=== PATIENT | female | born 1985 | race Hispanic/Latino ===

== ENCOUNTER 2017-11-19 09:54 | Outpatient (CLI) | payer BC | END 2017-11-19 09:55 | disposition home or self-care (01) | LOC: BICULT 09:54 | PROVIDERS: ATTEND Family Medicine | DX: Z34.92 Encounter for supervision of normal pregnancy, unspecified, second trimester (principal); Z3A.20 20 weeks gestation of pregnancy | CPT/HCPCS: 76805 ==

== ENCOUNTER 2018-03-19 16:23 | Day surgery (SDC) | payer BC ==
[2018-03-19 17:36] VITALS: BP 124/74; TEMP 98.7; BMI 36.2
--- NOTE | 2018-03-19 18:01 | PDOC.LDHP ---
Labor and Delivery H&P HPI: Patient of Dr Ondina Thompson. Patient is a 32 yo at [address] Thompson yesterday and was 3cm. here for irregular CTX. HX GDM on metformin. No VB no LOF. No HAs, no visual changes. Good FM. Review of systems: Complete ROS completed and as per HPI Current gestational age (weeks): 37 Due date: 04/09/18 Dating criteria: last menstrual period Grav: 3 Para: 2 OB History Details: CS X 1 with first and with last delivery. Desires TOLAC Current complications: gestational diabetes (Metformin) Abnormal US findings: No Current medications: pre-santa vitamins, other (metformin) Previous surgical history: low tranverse CS Allergies/Adverse Reactions: Allergies Allergy/AdvReac Type Severity Reaction Status Date / Time No Known Allergies Allergy Verified 09/08/16 21:43 Social history: none - Physical Exam Vital signs reviewed and normal: yes General: NAD Heart: RRR Lungs: CTAB Abdomen: gravid Extremeties: no edema FHT: category 1 [place] contractions every: irregular - Vaginal Exam cm dilated: 3 (BOWI) Effacement: 50% Station: -1 - Assessment GDM on metformin, latent phase of labor - Plan Plan: observation in L&D (We will observe for now and recheck in 1 hour. No cervical change since yesterday. I have ordered an accucheck for GDM HX.)
--- NOTE | 2018-03-19 18:34 | PDOC.EVN ---
Event Note - Event Note Event Note: bedside accucheck was 86.
--- NOTE | 2018-03-19 18:55 | PDOC.EVN ---
Event Note - Event Note Event Note: no cervical change at recheck: ok for discharge.
== END 2018-03-19 19:11 | disposition home or self-care (01) ==
LOC: L&D/OP 16:23
PROVIDERS: ATTEND Family Medicine
DX: O47.1 False labor at or after 37 completed weeks of gestation (principal); O24.415 Gestational diabetes mellitus in pregnancy, controlled by oral hypoglycemic drugs; Z3A.37 37 weeks gestation of pregnancy
CPT/HCPCS: 36416

== ENCOUNTER 2018-03-21 15:14 | Day surgery (SDC) | payer BC ==
[2018-03-21 15:54] VITALS: BP 119/62; TEMP 98.2; BMI 37.4
--- NOTE | 2018-03-22 02:55 | SS ---
LABOR AND DELIVERY TRIAGE NOTE REGULAR PHYSICIAN: Darrick Zee M.D. EVALUATING PHYSICIAN: Jerson Holden M.D. CHIEF COMPLAINT: Irregular contractions over the last 24 hours. HISTORY OF PRESENT ILLNESS: Ms. Larry Sauceda is a 32-year-old G3, P2-0-0-2, EDC= 04/09/18 who presents complaining of irregular uterine contractions over the last 24 hours. She was seen by Dr. Zee last week and was noted to be 3 cm in the office. She denies ruptured membranes or vaginal bleeding. PAST OBSTETRICAL HISTORY: She had 1 section for failure to progress by Dr. Hannah. This was followed by successful with Dr. Zee. Her care has been with him and has been complicated only by gestational diabetes that was apparently diagnosed late in the and is being treated with metformin. PAST MEDICAL HISTORY: None. PAST SURGICAL HISTORY: as above. ALLERGIES: No known allergies. CURRENT MEDICATIONS: vitamins and metformin. SOCIAL HISTORY: Denies tobacco or alcohol use. FAMILY HISTORY: Unremarkable. REVIEW OF SYSTEMS: Denies nausea, vomiting, fever or chills, rupture of membranes or vaginal bleeding. PHYSICAL EXAMINATION: VITAL SIGNS: Stable. She is afebrile. ABDOMEN: Soft, nontender and gravid. Pelvic exam by the nurse on admission shows her to be 3-4 cm dilated and perhaps 50% effaced. heart tones are stable. No significant regular uterine contractions are seen. I examined her an hour later and she was 3-4 cm dilated. Her cervix was quite posterior and was maybe 70% effaced. Her heart tones remained stable. ASSESSMENT: 1. 37-week intrauterine . 2. History of previous section with history of successful . 3. No evidence of active labor at this time. PLAN: The patient will be discharged to home. She has been given complete labor precautions and will return should she begin to contract again or she ruptures her membranes. She understands all the above and has an appointment with Dr. Zee this week. MANJIT
== END 2018-03-21 17:05 | disposition home or self-care (01) ==
LOC: L&D/OP 15:14
PROVIDERS: ATTEND Family Medicine
DX: O47.1 False labor at or after 37 completed weeks of gestation (principal); Z79.84 Long term (current) use of oral hypoglycemic drugs; Z79.899 Other long term (current) drug therapy; Z98.890 Other specified postprocedural states; Z3A.39 39 weeks gestation of pregnancy
CPT/HCPCS: 99283

== ENCOUNTER 2018-03-27 11:33 | Day surgery (SDC) | payer BC ==
[2018-03-27 12:11] VITALS: BMI 37.5
--- NOTE | 2018-03-27 12:19 | PDOC.LDHP ---
Labor and Delivery H&P HPI: Patient of Dr Ondina Thompson CC: Here for possible contraction Triage Patient is a 32 yo CS and x 1 in past who desires TOLAC this time again. Cleared for TOLAC by Jay. here for irregular contractions. No VB, no gush of fluid, no trauma, good FM. Possile leakage by hx Review of systems: complete ROS performed and as per HPI Current gestational age (weeks): 38 Dating criteria: last menstrual period Grav: 3 Para: 2 OB History Details: Prior x 1 Current complications: gestational diabetes (metformin oral) Abnormal US findings: No Current medications: pre- vitamins, other (metformin) Previous surgical history: low tranverse CS Allergies/Adverse Reactions: Allergies Allergy/AdvReac Type Severity Reaction Status Date / Time No Known Allergies Allergy Verified 03/27/18 12:04 - Physical Exam Vital signs reviewed and normal: yes Abnormal vital signs: tmax 99 General: NAD Heart: RRR Lungs: CTAB Abdomen: gravid Extremeties: no edema FHT: category 1 [place] contractions every: every 2-5 minutes irregular - Vaginal Exam cm dilated: 1 Effacement: 50% Station: -3 - Assessment latent labor at early term, desires TOLAC - Plan Plan: observation in L&D (We will observe for now. Exam with palpable BOW and no leakage with manuevers (cough, valsalva). not sent as no gross leakage with manuevers and bag palpable. I w3ill monitor for 2 hours to see if leaks and /or changes CX. TOLAC reviewed)
--- NOTE | 2018-03-27 14:16 | PDOC.EVN ---
Event Note - Event Note Event Note: Follow up triage: Recheck of cervix without change, BPs ok... OK for outpatient care. DX: Latent labor at term, GDM
== END 2018-03-27 14:12 | disposition home or self-care (01) ==
LOC: L&D/OP 11:33
PROVIDERS: ATTEND Family Medicine
DX: O47.1 False labor at or after 37 completed weeks of gestation (principal); O24.415 Gestational diabetes mellitus in pregnancy, controlled by oral hypoglycemic drugs; Z79.84 Long term (current) use of oral hypoglycemic drugs; Z79.899 Other long term (current) drug therapy; Z3A.38 38 weeks gestation of pregnancy
CPT/HCPCS: 99283

== ENCOUNTER 2018-04-01 16:19 | Inpatient (IN) | payer BC ==
[2018-04-01 16:58] VITALS: BMI 37.5
[2018-04-01] MEDS ORDERED: Promethazine HCl 25 MG/ML VIAL IM PRN (17:14)
[2018-04-01] MEDS ORDERED: Butorphanol Tartrate 1 MG/ML VIAL SLOW IVP PRN (17:14)
[2018-04-01] MEDS ORDERED: Ondansetron HCl/PF 4 MG/2 ML Vial IVP PRN (17:14)
[2018-04-01] MEDS ORDERED: Ibuprofen 800 MG TAB PO PRN (17:14)
[2018-04-01] MEDS ORDERED: Lidocaine 1% (PF) 30 ML VIAL SC PRN (17:14)
[2018-04-01] MEDS ORDERED: HYDROcodone/Acetaminophen 5/325 mg Tablet PO PRN ×2 (17:14)
[2018-04-01] MEDS ORDERED: Lactated Ringer's 1,000 ML IV SCH (17:15)
[2018-04-01] MEDS ORDERED: Penicillin G Potassium 5 MILL.UNITS in Sodium Chloride 0.9% 100 ML IVPB SCH (17:15)
--- NOTE | 2018-04-01 17:20 | PDOC.LDHP ---
Labor and Delivery H&P Chief complaint: contractions HPI: 32 yo LAF c/o UCs since earlier this PM. C/o SROM here now. Current gestational age (weeks): 38 Due date: 04/09/18 Dating criteria: last menstrual period Grav: 3 Para: 2 OB History Details: PNC with Juan ferreira, complicated by GDM now on diet and Metforminj 500 QD. H/o C/S for FTP. H/o successful . Current complications: gestational diabetes Abnormal US findings: No Current medications: pre-santa vitamins, other (Metformin %00 QD) Previous surgical history: low tranverse CS Allergies/Adverse Reactions: Allergies Allergy/AdvReac Type Severity Reaction Status Date / Time No Known Allergies Allergy Verified 04/01/18 16:53 Social history: none - Physical Exam Vital signs reviewed and normal: yes General: breathing through contractions Lungs: nonlabored breathing Abdomen: gravid Extremeties: trace edema FHT: category 1, variability present [place] contractions every: UCs q 3-5 mins. - Vaginal Exam cm dilated: 5 Effacement: 90% Station: -1 - OB Labs Blood type: A RH: negative Antibody Screen: negative HIV: negative RPR: negative HEPSAg: negative 1 hour GCT: positive - Assessment L&D Assessment: term patient in labor (previous C/S with h/o successful + GBS) - Plan Plan: admit to L&D, GBS antibiotic prophylaxis (Admit to L&D, wants to again, start GBS prophylaxis, consult for epidural. Dr. Prakash covering for Dr. Zee, she has been notified)
[2018-04-01 17:29] LABS: Hemoglobin 11.3 g/dL (12.0-16.0); Mean Corpuscular HGB CONC 32.9 g/dL (32.0-36.0); Mean Corpuscular Hemoglobin 26.5 pg (27.0-31.0); Mean Corpuscular Volume 80.6 fL (78.0-98.0); Mean Platelet Volume 9.4 fL (7.4-10.4); Platelet Count 195 thou/uL (130-400); RBC Distribution Width 12.8 % (11.5-14.5); Red Blood Cell (RBC) Count 4.27 mill/uL (4.20-5.40); White Blood Cell (WBC) Count 12.3 thou/uL (4.8-10.8)
[2018-04-01] MEDS ORDERED: DISCONTINUE ALL PREVIOUS NARCOTICS FS SCH (17:45)
[2018-04-01] MEDS ORDERED: Bupivacaine 0.75% 13.4 ML, fentaNYL Citrate/PF 400 MCG in Sodium Chloride 0.9% 78.6 ML EPIDURAL SCH (17:45)
[2018-04-01] MEDS: Lactated Ringer's 1,000 ML IV SCH ×2 (18:00→21:55)
[2018-04-01 18:08] LABS: HBSAg Index 0.19 S/CO (0-0.99); Hep B Surf Ag Non-Reactive S/CO (NonReactive); Syphilis Antibody Nonreactive (Nonreactive); Syphilis Antibody Index 0.04 S/CO (<1.00 Non-Reactive)
[2018-04-01] MEDS ORDERED: ePHEDrine/0.9% NaCl/PF SYRINGE 50 mg/10 ml SLOW IVP PRN (18:56)
[2018-04-01] MEDS ORDERED: Naloxone HCl 0.4 mg/ml Vial IVP PRN ×2 (18:56)
[2018-04-01] MEDS ORDERED: Lactated Ringer's 500 ML IV PRN (18:56)
[2018-04-01] MEDS ORDERED: fentaNYL Citrate/PF 400 MCG, Bupivacaine 0.5% 20 ML in Sodium Chloride 0.9% 72 ML EPIDURAL SCH (19:00)
[2018-04-01] MEDS ORDERED: Communication Order-Pharmacy FS SCH (19:00)
[2018-04-01] MEDS: Penicillin G 2.5 MILL.units 2.5 MILL.UNITS in Premix Bag 1 BAG IVPB SCH (21:55)
[2018-04-02] MEDS: NS / Oxytocin 40 units/1000ml 1,000 ML IV PRN ×2 (01:36→02:20)
[2018-04-02] MEDS ORDERED: Milk Of Magnesia 30 ML UDCUP PO PRN (04:18)
[2018-04-02] MEDS ORDERED: Lanolin Ointment 7 GM TUBE TOP PRN (04:18)
[2018-04-02] MEDS ORDERED: Benzocaine/Menthol 20-0.5% 60 ML CAN TOP PRN (04:18)
[2018-04-02] MEDS ORDERED: Preparation H Ointment 28 GM TUBE PR PRN (04:18)
[2018-04-02] MEDS ORDERED: NS / Oxytocin 40 units/1000ml 1,000 ML IV SCH (04:18)
[2018-04-02] MEDS ORDERED: Bisacodyl 10 MG SUPP PR PRN (04:18)
[2018-04-02] MEDS ORDERED: Adacel (T-DAP) 0.5 ML VIAL IM ONE (04:45)
[2018-04-02] MEDS: Ibuprofen 800 MG TAB PO SCH ×3 (05:23→21:26)
[2018-04-02] MEDS ORDERED: Bupivacaine/Epinephrine 0.25% 30 ML VIAL ONE (07:50)
[2018-04-02] MEDS ORDERED: ePHEDrine/0.9% NaCl/PF SYRINGE 50 mg/10 ml ONE (07:50)
[2018-04-02] MEDS: Ferrous Sulfate 325 MG TAB PO SCH ×2 (09:11→17:41)
[2018-04-02] MEDS: Docusate Calcium (SURFAK) 240 MG CAP PO SCH ×2 (09:12→21:25)
[2018-04-02] MEDS: HYDROcodone/Acetaminophen 5/325 mg Tablet PO PRN ×2 (18:00→23:37)
[2018-04-02] MEDS: Penicillin G 2.5 MILL.units 2.5 MILL.UNITS in Premix Bag 1 BAG IVPB SCH (22:02)
[2018-04-03] MEDS: Ibuprofen 800 MG TAB PO SCH (05:09)
[2018-04-03 07:42] VITALS: BP 111/70; TEMP 98
--- NOTE | 2018-04-03 08:58 | PDOC.PP ---
Post Progress Note Post Day #: 1 Subjective: Doing well. No c/o. Wants to go home. PO intake tolerated: yes Flatus: yes Ambulation: yes Vital Signs (12 hours) Temp Pulse Resp BP 04/03/18 08:00 98.0 F 68 20 04/03/18 07:41 98.0 F 68 20 111/70 04/03/18 00:00 98.5 F 73 16 134/66 Weight Weight 199 lb - Physical Examination General: NAD Cardiovascular: no m/r/g, RRR Respiratory: clear to auscultation bilaterally, non-labored breathing Abdominal: + bowel sounds, lochia, no distention, appropriately TTP Psychiatric: A&Ox3, normal affect Result Diagrams: 04/01/18 17:20 Additional Labs: Post Labs Blood Type A NEGATIVE 04/01/18 17:20 Hep Bs Antigen Non-Reactive S/CO (NonReactive) 04/01/18 17:20 (1) Vaginal delivery Code(s): O80 - ENCOUNTER FOR FULL-TERM UNCOMPLICATED DELIVERY Status: Acute (2) Vaginal delivery following previous section, delivered Code(s): O34.219 - MATERNAL CARE FOR UNSP TYPE SCAR FROM PREVIOUS DEL Status: Acute - Assessment/Plan Routine PP care D/C home F/U in 6 weeks.
[2018-04-03] MEDS: Ferrous Sulfate 325 MG TAB PO SCH (09:26)
[2018-04-03] MEDS: Docusate Calcium (SURFAK) 240 MG CAP PO SCH (09:26)
== END 2018-04-03 11:50 | disposition home or self-care (01) | DRG 775 ==
LOC: L&D/OP 16:19 → L&D 17:11 → 3SW 04-02 04:14
PROVIDERS: ADMIT Family Medicine; ATTEND Family Medicine
PROC: 10E0XZZ Delivery of Products of Conception, External Approach (ICD-10-PCS; principal; 2018-04-02)
PROC: 3E0234Z Introduction of Serum, Toxoid and Vaccine into Muscle, Percutaneous Approach (ICD-10-PCS; 2018-04-02)
PROC: 3E0334Z Introduction of Serum, Toxoid and Vaccine into Peripheral Vein, Percutaneous Approach (ICD-10-PCS; 2018-04-02)
DX: O76 Abnormality in fetal heart rate and rhythm complicating labor and delivery (principal); O34.211 Maternal care for low transverse scar from previous cesarean delivery; O99.824 Streptococcus B carrier state complicating childbirth; Z37.0 Single live birth; O24.425 Gestational diabetes mellitus in childbirth, controlled by oral hypoglycemic drugs; O26.893 Other specified pregnancy related conditions, third trimester; Z3A.39 39 weeks gestation of pregnancy; Z67.10 Type A blood, Rh positive; Z23 Encounter for immunization
CPT/HCPCS: 36415; 36416; 51702; 85027; 85461; 86780; 86850; 86870; 86900; 86901; 87340; 90384; 96372; J0595; J2001; J2540; J3010; J7050

== ENCOUNTER 2021-01-07 11:48 | Outpatient (CLI) | payer BC | END 2021-01-07 11:49 | disposition home or self-care (01) | LOC: DTY/OP 11:48 | PROVIDERS: ATTEND Specialist | DX: Z01.818 Encounter for other preprocedural examination (principal); E66.01 Morbid (severe) obesity due to excess calories | CPT/HCPCS: 97802 ==

== ENCOUNTER 2021-07-27 10:00 | Inpatient (IN) | payer BC ==
[2021-08-21 13:01] VITALS: BMI 35.6
[2021-08-27] MEDS ORDERED: Scopolamine 1.5 mg/72 hour Patch ONE (06:56)
[2021-08-27] MEDS ORDERED: cefOXitin Sodium/Dextrose 2 GM/50 ML BAG ONE (06:56)
[2021-08-27] MEDS ORDERED: Heparin 5,000 UNITS/ML VIAL ONE (06:56)
[2021-08-27] MEDS ORDERED: Acetaminophen 500 MG TAB ONE (06:56)
[2021-08-27] MEDS ORDERED: Ketorolac Tromethamine 30 MG/ML VIAL ONE (06:56)
[2021-08-27] MEDS ORDERED: Fentanyl 100 MCG/2 ML VIAL ONE ×2 (07:05→09:22)
[2021-08-27] MEDS ORDERED: Midazolam HCl 2 mg/2 ml Vial ONE (07:05)
[2021-08-27] MEDS ORDERED: Lidocaine 1% w/Epinephrine 1:100K 20 ML VIAL ONE (07:07)
[2021-08-27] MEDS ORDERED: Bupivacaine 0.25% HCL 30 ML VIAL ONE (07:07)
[2021-08-27] MEDS ORDERED: ePHEDrine 50 MG/ML VIAL ONE (07:40)
[2021-08-27] MEDS ORDERED: Ondansetron PF 4 MG/2 ML Vial ONE (07:40)
[2021-08-27] MEDS ORDERED: PROPOFOL 200 MG/20 ML VIAL ONE (07:40)
[2021-08-27] MEDS ORDERED: Dexamethasone 20 MG/5 ML VIAL ONE (07:40)
[2021-08-27] MEDS ORDERED: PHENYLEPHRINE-NS 100 MCG/ML 10 ML SYRINGE ONE (07:40)
[2021-08-27] MEDS ORDERED: Rocuronium Bromide 10 MG/ML (10ML VIAL) ONE (07:40)
[2021-08-27] MEDS ORDERED: Lidocaine 1% PF 5 ML VIAL ONE (07:40)
[2021-08-27] MEDS ORDERED: Glycopyrrolate 0.2 MG/ML 5 ML SYRINGE ONE (07:40)
[2021-08-27] MEDS ORDERED: SUGAMMADEX SODIUM 200 MG/2 ML VIAL ONE (08:52)
[2021-08-27] MEDS ORDERED: Ondansetron HCl/PF 4 MG/2 ML Vial IVP PRN (09:18)
[2021-08-27] MEDS ORDERED: Promethazine HCl 25 MG/ML VIAL IM PRN ×2 (09:18→09:28)
[2021-08-27] MEDS ORDERED: Promethazine HCl 25 MG/ML VIAL IVPB PRN (09:18)
[2021-08-27] MEDS ORDERED: hydrALAZINE 20 MG/ML VIAL SLOW IVP PRN (09:28)
[2021-08-27] MEDS ORDERED: Dextrose 50% Abboject 50 ML SYRINGE SLOW IVP PRN (09:28)
[2021-08-27] MEDS ORDERED: NORGESTIMATE ETHINYL ESTRADIOL PO SCH (09:28)
[2021-08-27] MEDS ORDERED: Hydrocodone-Acetamin 15 ML UDCUP PO PRN (09:28)
[2021-08-27] MEDS ORDERED: LISDEXAMFETAMINE DIMESYLATE 20 MG PO SCH (09:28)
[2021-08-27] MEDS ORDERED: Dextrose 5% in Water 1,000 ML IV PRN (09:28)
[2021-08-27] MEDS ORDERED: diphenhydrAMINE 50 MG/ML VIAL IVP PRN (09:28)
[2021-08-27] MEDS ORDERED: Morphine 4 MG/ML VIAL SLOW IVP PRN (10:05)
[2021-08-27] MEDS ORDERED: Pantoprazole 40 MG VIAL IVP SCH (10:15)
[2021-08-27] MEDS: Morphine 4 MG/ML VIAL SLOW IVP PRN ×4 (10:32→22:23)
[2021-08-27] MEDS: Ondansetron PF 4 MG/2 ML Vial IVP PRN ×2 (11:45→18:33)
[2021-08-27] MEDS: Ketorolac Tromethamine 30 MG/ML VIAL IVP SCH ×2 (11:45→18:20)
[2021-08-27] MEDS: D5 1/2 NS w/20 mEq KCL 1,000 ML IV SCH ×2 (18:21)
[2021-08-27] MEDS ORDERED: Enoxaparin Sodium 40 MG/0.4 ML SYRINGE SC SCH (21:00)
[2021-08-28] MEDS: D5 1/2 NS w/20 mEq KCL 1,000 ML IV SCH (00:20)
[2021-08-28] MEDS: Ketorolac Tromethamine 30 MG/ML VIAL IVP SCH ×2 (00:21→05:47)
[2021-08-28] MEDS: Ondansetron PF 4 MG/2 ML Vial IVP PRN (00:26)
[2021-08-28 00:41] VITALS: TEMP 98.1
[2021-08-28] MEDS ORDERED: Cepastat Lozenges 1 LOZ PO PRN (06:06)
[2021-08-28 06:14] LABS: #Lymphocytes 1.6 thou/uL (1.20-3.40); #Monocytes 0.7 thou/uL (0.11-0.59); #Neutrophils 9.9 thou/uL (1.40-6.50); %Basophils 0.3 % (0.0-1.0); %Eosinophils 0.1 % (0.0-10.0); %Lymphocytes 12.7 % (21.0-51.0); %Monocytes 5.8 % (0.0-10.0); %Neutrophils 81.1 % (42.0-75.0); Hemoglobin 11.7 g/dL (12.0-16.0); Mean Corpuscular Hemoglobin 29.7 pg (27.0-31.0); Mean Corpuscular Volume 90.1 fL (78.0-98.0); Mean Platelet Volume 8.5 fL (7.4-10.4); Platelet Count 207 thou/uL (130-400); RBC Distribution Width 11.3 % (11.5-14.5); Red Blood Cell (RBC) Count 3.94 mill/uL (4.20-5.40); White Blood Cell (WBC) Count 12.2 thou/uL (4.8-10.8)
[2021-08-28 06:31] LABS: Anion Gap 10 mmol/L (10-20); BUN (Urea Nitrogen) 5 mg/dL (7.0-18.7); Calc. Creatinine Clearance 150 mL/min (70-130); Calcium 8.5 mg/dL (7.8-10.44); Carbon Dioxide 25 mmol/L (22-29); Chloride 108 mmol/L (98-107); Glucose 107 mg/dL (70-105); Potassium 4.7 mmol/L (3.5-5.1); Sodium 138 mmol/L (136-145)
[2021-08-28] MEDS ORDERED: D5 1/2 NS w/20 mEq KCL 1,000 ML IV SCH (07:48)
[2021-08-28] MEDS ORDERED: Pantoprazole 40 MG VIAL IVP SCH (09:00)
[2021-08-28 10:54] VITALS: BP 144/77
== END 2021-08-28 14:44 | disposition home or self-care (01) | DRG 621 ==
LOC: EDSTATUS 08-01 13:15 → SURG A 08-27 06:39
PROVIDERS: ADMIT Specialist; ATTEND Specialist
PROC: 0DB64Z3 Excision of Stomach, Percutaneous Endoscopic Approach, Vertical (ICD-10-PCS; principal; 2021-08-27)
DX: E66.01 Morbid (severe) obesity due to excess calories (principal); Z20.822 Contact with and (suspected) exposure to COVID-19; F90.9 Attention-deficit hyperactivity disorder, unspecified type; Z68.35 Body mass index [BMI] 35.0-35.9, adult; Z79.899 Other long term (current) drug therapy
CPT/HCPCS: 36415; 80048; 84703; 85025; 88307; 93005; C9113; J0694; J1100; J1644; J1650; J1885; J2250; J2270; J2405; J2704; J3010; J3480; J3490; S0020; U0003; U0005

== ENCOUNTER 2021-08-26 07:48 | Outpatient (CLI) | payer BC ==
[2021-08-26 10:15] LABS: #Eosinphils 0.1 10x3/uL (0.0-0.5); #Monocytes 0.5 10x3/uL (0.0-1.1); #Neutrophils 7.4 10x3/uL (1.5-8.4); %Basophils 0.3 % (0.0-2.0); %Eosinophils 0.9 % (0.0-6.0); %Lymphocytes 20.1 % (18.0-47.0); %Neutrophils 73.4 % (40.0-75.0); Hemoglobin 13.2 g/dL (12.0-15.5); Mean Corpuscular HGB CONC 31.6 g/dL (32.0-36.0); Mean Corpuscular Volume 88.6 fl (81.6-98.3); Mean Platelet Volume 11.1 fl (7.4-10.4); Platelet Count 256 10x3/uL (150-450); RBC Distribution Width 12.1 % (11.5-14.5); Red Blood Cell (RBC) Count 4.72 10x6/uL (3.90-5.03); White Blood Cell (WBC) Count 10.1 10x3/uL (3.5-10.5)
[2021-08-26 10:28] LABS: BHCG - Serum Negative (NEGATIVE)
[2021-08-26 10:29] LABS: Pregs Control Background? CLEAR/WHITE (CLR/WHITE); Pregs Control Bar Appear? YES (CONTROL BAR)
[2021-08-26 10:30] LABS: Anion Gap 13 mmol/L (10-20); BUN (Urea Nitrogen) 19 mg/dL (7.0-18.7); Calc. Creatinine Clearance 0 mL/min (70-130); Calcium 9.3 mg/dL (7.8-10.44); Carbon Dioxide 25 mmol/L (22-29); Chloride 104 mmol/L (98-107); Glucose 80 mg/dL (70-105); Potassium 4.7 mmol/L (3.5-5.1); Sodium 137 mmol/L (136-145)
[2021-08-26 21:59] LABS: SARS-CoV-2 PCR by NAA Not Detected (NotDetected)
== END 2021-08-26 07:49 | disposition home or self-care (01) ==
LOC: LABBT 07:48
PROVIDERS: ATTEND Specialist
DX: Z01.818 Encounter for other preprocedural examination (principal); E66.01 Morbid (severe) obesity due to excess calories; Z20.822 Contact with and (suspected) exposure to COVID-19
CPT/HCPCS: 80048; 84703; 85025; 93005; 93010; U0003; U0005

== ENCOUNTER 2024-09-08 17:55 | Inpatient (IN) | payer BC, SELFPAY ==
[2024-09-08] MEDS: Acetaminophen 325 MG TAB PO SCH (19:36)
[2024-09-08 19:55] VITALS: BMI 26.9
[2024-09-08] MEDS ORDERED: Acetaminophen/Codeine 30-300mg Tablet PO PRN (20:19)
[2024-09-08 20:53] LABS: Hematocrit 33.6 % (36.0-47.0); Hemoglobin 10.7 g/dL (12.0-16.0); Mean Corpuscular HGB CONC 31.8 g/dL (32.0-36.0); Mean Corpuscular Hemoglobin 30.5 pg (27.0-31.0); Mean Corpuscular Volume 95.7 fL (78.0-98.0); Mean Platelet Volume 9.5 fL (7.4-10.4); Platelet Count 106 10x3/uL (130-400); Red Blood Cell (RBC) Count 3.51 mill/uL (4.20-5.40)
[2024-09-08] MEDS: Sodium Chloride 0.9% 1,000 ML IV SCH (21:05)
[2024-09-08] MEDS: Piperacillin/Tazobactam 3.375 GM in Sodium Chloride 0.9% 100 ML IVPB SCH (21:20)
[2024-09-08 21:21] LABS: ALT (SGPT) 3779 U/L (8-55); AST (SGOT) Greater than 4202 U/L (5-34); Albumin 2.9 g/dL (3.5-5.0); Alkaline Phosphatase 138 U/L (40-110); Anion Gap 19 mmol/L (10-20); Anisocytosis SLIGHT = 6-15 cells HPF (0-5); BUN (Urea Nitrogen) 40 mg/dL (7.0-18.7); Bilirubin, Total 4.6 mg/dL (0.2-1.2); Calc. Creatinine Clearance 17 mL/min (70-130); Calcium 6.5 mg/dL (7.8-10.44); Carbon Dioxide 15 mmol/L (22-29); Chloride 107 mmol/L (98-107); Estimated GFR 12; Globulin 2.3 g/dL (2.4-3.5); Glucose 65 mg/dL (70-105); Lymphocytes 7 % (21-51); Neutrophil 92 % (42-75); Platelet Adequacy Comment Platelets Decreased; Poikilocytosis SLIGHT = 6-15 cells HPF (0-5); Polychromasia SLIGHT = 2-3 cells HPF (0-2); Potassium 4.9 mmol/L (3.5-5.1); Protein, Total 5.2 g/dL (6.0-8.3); Schistocytes SLIGHT = 2-5 cells HPF (0-1); Sodium 136 mmol/L (136-145)
[2024-09-08] MEDS ORDERED: Calcium Gluc 4.6 MEQ/10 ML (100 MG/ML) SLOW IVP ONE (21:37)
[2024-09-08] MEDS: traMADol HCl 50 MG TAB PO PRN (21:58)
[2024-09-08] MEDS: Sodium Bicarbonate 75 MEQ in Dextrose 5% in Water 1,000 ML IV SCH (22:00)
[2024-09-08] MEDS: CALCIUM GLUC 1 GM/NS 50 ML 1 GM in Premix 1 BAG IVPB SCH (22:02)
[2024-09-08 22:49] LABS: HBsAg Index 0.22 S/CO (0-0.99); Hep A IgM AB NONREACTIVE (NonReactive); Hep A IgM S/CO 0.17 S/CO (0-0.79); Hep B Core IgM Index 0.09 S/CO (0-0.79); Hep B Surf Ag NONREACTIVE S/CO (NonReactive); Hep C IgG Ab NONREACTIVE S/CO (NonReactive); Hep C Index 0.16 S/CO (0-0.79); Hepatitis B Core IgM Abs NONREACTIVE S/CO (NonReactive)
[2024-09-09 00:04] LABS: Lactic Acid 1.64 mmol/L (0.5-2.2)
[2024-09-09] MEDS: Piperacillin/Tazobactam 3.375 GM in Sodium Chloride 0.9% 100 ML IVPB SCH (01:42)
[2024-09-09 02:13] LABS: Iron 24 ug/dL (50-170); Iron Binding Capacity, Total 268 mcg/dL (265-497)
[2024-09-09 04:30] LABS: Amphetamine Not Detected (NotDetected); Barbiturates Screen Not Detected (NotDetected); Benzodiazepine Screen Not Detected (NotDetected); Cocaine Metabolite Screen Not Detected (NotDetected); Methadone Not Detected (NotDetected); Methamphetamine Not Detected (NotDetected); Opiate Screen Detected (NotDetected); Oxycodone Screen Not Detected (NotDetected); Phencyclidine (PCP) Not Detected (NotDetected); THC/Cannabinoid Screen Not Detected (NotDetected); Tricyclic Screen Not Detected (NotDetected)
[2024-09-09 05:31] LABS: #Basophils Less than 0.03 10x3/uL (0.0-0.2); %Basophils 0.1 % (0.0-1.0); %Eosinophils 0.5 % (0.0-10.0); %Lymphocytes 10.2 % (21.0-51.0); %Monocytes 0.9 % (0.0-10.0); %Neutrophils 87.8 % (42.0-75.0); Hematocrit 30.5 % (36.0-47.0); Hemoglobin 9.8 g/dL (12.0-16.0); Mean Corpuscular HGB CONC 32.1 g/dL (32.0-36.0); Mean Corpuscular Hemoglobin 29.9 pg (27.0-31.0); Mean Platelet Volume 9.6 fL (7.4-10.4); Platelet Count 93 10x3/uL (130-400); Red Blood Cell (RBC) Count 3.28 mill/uL (4.20-5.40)
[2024-09-09 05:48] LABS: AST (SGOT) Greater than 4202 U/L (5-34); Albumin 2.5 g/dL (3.5-5.0); Alkaline Phosphatase 118 U/L (40-110); Anion Gap 18 mmol/L (10-20); BUN (Urea Nitrogen) 45 mg/dL (7.0-18.7); Bilirubin, Total 4.3 mg/dL (0.2-1.2); Calc. Creatinine Clearance 17 mL/min (70-130); Calcium 6.3 mg/dL (7.8-10.44); Carbon Dioxide 17 mmol/L (22-29); Chloride 103 mmol/L (98-107); Estimated GFR 11; Glucose 107 mg/dL (70-105); Potassium 3.9 mmol/L (3.5-5.1); Protein, Total 4.5 g/dL (6.0-8.3); Sodium 134 mmol/L (136-145)
[2024-09-09 06:30] LABS: ALT (SGPT) 3284 U/L (8-55)
[2024-09-09] MEDS: Acetaminophen 325 MG TAB PO PRN (08:16)
[2024-09-09] MEDS: Ondansetron PF 4 MG/2 ML Vial IVP PRN (08:20)
[2024-09-09] MEDS: Morphine 2 MG/ML VIAL SLOW IVP PRN (11:21)
[2024-09-09] MEDS: Lactated Ringer's 1,000 ML IV SCH ×2 (13:42→16:28)
[2024-09-09 14:04] LABS: Platelet Count 95 10x3/uL (130-400)
[2024-09-09 14:12] LABS: INR-International Normal Ratio 2.5; Prothrombin Time 26.7 sec (12.0-14.7)
[2024-09-09 14:13] LABS: Fibrinogen 156 mg/dL (253-463); PTT 36.1 sec (22.9-36.1)
[2024-09-09 14:31] LABS: D-Dimer Test Greater than 20.00 mcg/mL (0.27-0.43)
[2024-09-09 16:03] LABS: Phosphorus 3.2 mg/dL (2.3-4.7)
[2024-09-09 16:05] LABS: Iron 22 ug/dL (50-170); Iron Binding Capacity, Total 254 mcg/dL (265-497)
[2024-09-09 16:28] LABS: Pregnancy Test - Urine (BHCG) Negative (Negative); Pregu Control Background? CLEAR/WHITE (CLR/WHITE); Pregu Control Bar Appear? YES (CONTROL BAR); Specific Gravity 1.012 (1.002-1.036)
[2024-09-09 16:30] LABS: Bilirubin Negative (Negative); Blood, Urine 2+ (Negative); CAUTI Indications for Culture Pregnancy; Clarity Clear (Clear); Glucose, Urine (Dipstick) Normal (Negative); Ketone, Urine Negative (Negative); Leukocyte Negative Leu/uL (Negative); Nitrite Negative (Negative); Protein, Urine (Dipstick) 30 mg/dL (Neg-Trace); RBC/HPF 0-3 HPF (0-3); Specific Gravity, Urine 1.012 (1.002-1.036); Squamous Epithelial 0-3 HPF (0-3); Urobilinogen Normal mg/dL (Less than 2); WBC/HPF 0-3 HPF (0-3); pH, Urine 5.5 (5.0-9.0)
[2024-09-09 16:36] LABS: Bacteria/HPF Rare-Few HPF (None Seen); Urine Culture Reflex Yes Yes
[2024-09-09] MEDS: ACETYLCYSTEINE IV SCH ×3 (17:09→22:35)
[2024-09-09] MEDS: DEXTROSE 5% IV SCH ×3 (17:09→22:35)
[2024-09-09] MEDS: WATER IV SCH ×3 (17:09→22:35)
[2024-09-09 17:57] LABS: Immunoglob - A (Total IgA) 300 mg/dL (65-421); Immunoglob - G (Total IgG) 776 mg/dL (552-1631); Immunoglob - M (Total IgM) 162 mg/dL (33-293)
[2024-09-09 17:58] LABS: Immunoglob - G (Total IgG) 775 mg/dL (552-1631); Immunoglob - M (Total IgM) 162 mg/dL (33-293)
[2024-09-09] MEDS: Vancomycin (BATCH) 1.75 GM in Premix 1 BAG IVPB SCH (19:47)
[2024-09-09] MEDS ORDERED: Vancomycin 1 GM in Premix 1 BAG IVPB SCH (21:00)
[2024-09-09] MEDS: cefTRIAXone\\ROCEPHIN 2 GM in Sodium Chloride 0.9% 100 ML IVPB SCH (22:37)
[2024-09-09] MEDS: metroNIDAZOLE 500 MG in Premix 1 BAG IVPB SCH (23:20)
[2024-09-10 05:19] LABS: Platelet Count 75 10x3/uL (130-400)
[2024-09-10 05:23] LABS: INR-International Normal Ratio 2.5; PTT 36.1 sec (22.9-36.1); Prothrombin Time 26.8 sec (12.0-14.7)
[2024-09-10 05:25] LABS: Vancomycin, Random Less than 1.4 ug/mL (See Comment)
[2024-09-10 05:28] LABS: Bilirubin, Total 4.9 mg/dL (0.2-1.2); Fibrinogen 140 mg/dL (253-463); Triglycerides 126 mg/dL (Less than 150)
[2024-09-10 05:41] LABS: D-Dimer Test Greater than 20.00 mcg/mL (0.27-0.43)
[2024-09-10 06:13] LABS: Magnesium 1.3 mg/dL (1.6-2.6); Phosphorus 2.5 mg/dL (2.3-4.7)
[2024-09-10 06:16] LABS: ALT (SGPT) 2152 U/L (8-55); AST (SGOT) 1616 U/L (5-34); Albumin 2.3 g/dL (3.5-5.0); Alkaline Phosphatase 106 U/L (40-110); Anion Gap 18 mmol/L (10-20); BUN (Urea Nitrogen) 38 mg/dL (7.0-18.7); Calc. Creatinine Clearance 22 mL/min (70-130); Calcium 6.5 mg/dL (7.8-10.44); Carbon Dioxide 18 mmol/L (22-29); Chloride 101 mmol/L (98-107); Estimated GFR 14; Globulin 1.9 g/dL (2.4-3.5); Glucose 111 mg/dL (70-105); Protein, Total 4.2 g/dL (6.0-8.3); Sodium 134 mmol/L (136-145)
[2024-09-10] MEDS: CALCIUM GLUC 1 GM/NS 50 ML 1 GM in Premix 1 BAG IVPB SCH (08:13)
[2024-09-10] MEDS: Calcium Gluc 4.6 MEQ/10 ML (100 MG/ML) SLOW IVP ONE (08:23)
[2024-09-10 09:30] LABS: Hematocrit 28.4 % (36.0-47.0); Hemoglobin 9.9 g/dL (12.0-16.0); Mean Corpuscular HGB CONC 34.9 g/dL (32.0-36.0); Mean Corpuscular Hemoglobin 30.3 pg (27.0-31.0); Mean Corpuscular Volume 86.9 fL (78.0-98.0); Mean Platelet Volume 10.3 fL (7.4-10.4); Platelet Count 76 10x3/uL (130-400); RBC Distribution Width 13.7 % (11.5-14.5); Red Blood Cell (RBC) Count 3.27 mill/uL (4.20-5.40)
[2024-09-10 09:54] LABS: ALT (SGPT) 2003 U/L (8-55); AST (SGOT) 1373 U/L (5-34); Albumin 2.2 g/dL (3.5-5.0); Alkaline Phosphatase 108 U/L (40-110); Anion Gap 18 mmol/L (10-20); BUN (Urea Nitrogen) 36 mg/dL (7.0-18.7); Bilirubin, Total 5.1 mg/dL (0.2-1.2); Calc. Creatinine Clearance 24 mL/min (70-130); Calcium 6.9 mg/dL (7.8-10.44); Carbon Dioxide 19 mmol/L (22-29); Chloride 101 mmol/L (98-107); Estimated GFR 16; Globulin 2.1 g/dL (2.4-3.5); Glucose 95 mg/dL (70-105); Potassium 2.9 mmol/L (3.5-5.1); Protein, Total 4.3 g/dL (6.0-8.3); Sodium 135 mmol/L (136-145)
[2024-09-10 09:56] LABS: Band 3 % (5-11); Eosinophils 2 % (0-10); Lymphocytes 9 % (21-51); Monocytes 1 % (0-10); Neutrophil 85 % (42-75); Platelet Adequacy Comment Platelets Decreased; Polychromasia SLIGHT = 2-3 cells HPF (0-2)
[2024-09-10] MEDS: Potassium Chloride 20 MEQ TAB PO SCH (11:21)
[2024-09-10 14:05] LABS: Reference Lab Name LABCORP
[2024-09-10 14:08] LABS: Ref Lab Test Ordered Leptospira IgM; Reference Lab Name LABCORP
[2024-09-10 14:13] LABS: EBV VCA IgM <36.0 U/mL (0.0-35.9); Nuclear AG IgG (EBNA) AB >600.0 U/mL (0.0-17.9)
[2024-09-10] MEDS ORDERED: Vancomycin HCl 500 MG in Sodium Chloride 0.9% 100 ML IVPB SCH (15:00)
[2024-09-10 17:27] VITALS: BP 131/85; TEMP 98.3
[2024-09-11 21:36] LABS: CMV DNA-PCR Test Negative (Negative)
[2024-09-12 15:12] LABS: Adenovirus F 40-41 Not Detected (Not Detected); Astrovirus Not Detected (Not Detected); C. difficile toxin A+B Not Detected (Not Detected); Campylobacter by PCR Not Detected (Not Detected); Cryptosporidium Not Detected (Not Detected); Cyclospora cayetanensis Not Detected (Not Detected); Entamoeba histolytica Not Detected (Not Detected); Enteroaggregative E. coli Not Detected (Not Detected); Enteropathogenic E. coli Not Detected (Not Detected); Enterotoxigenic E. coli Not Detected (Not Detected); Giardia lamblia Not Detected (Not Detected); Norovirus GI-GII Not Detected (Not Detected); Plesiomonas shigelloides Not Detected (Not Detected); Rotavirus A Not Detected (Not Detected); Salmonella Not Detected (Not Detected); Sapovirus Not Detected (Not Detected); Shiga-toxin-producing E coli Not Detected (Not Detected); Shigella/Enteroinvasive E coli Not Detected (Not Detected); Vibrio Not Detected (Not Detected); Vibrio cholerae Not Detected (Not Detected); Yersinia enterocolitica Not Detected (Not Detected)
[2024-09-13 07:37] LABS: HSV 1 - DNA Negative (Negative); HSV 2 - DNA Negative (Negative)
[2024-09-13 12:03] LABS: ANA Symphony (Qualitative) Negative (Negative); ANA Symphony (Quantitative) 0.1 Ratio (< 0.7 Negative); EliA Vaculitis New Method **** NEW METHOD ****; Mitochondrial Ab 0.6 U/mL (<4 Negative); dsDNA IgG Antibody 1.3 IU/mL (<10 Negative)
[2024-09-13 17:14] LABS: Methylmalonic Acid 215 nmol/L (0-378)
== END 2024-09-10 16:44 | disposition short-term general hospital (02) | DRG 441 ==
LOC: MSONC 17:55
PROVIDERS: ADMIT Internal Medicine; ATTEND Hospitalist
DX: B17.9 Acute viral hepatitis, unspecified (principal); D65 Disseminated intravascular coagulation [defibrination syndrome]; N17.9 Acute kidney failure, unspecified; E87.29 Other acidosis; F41.9 Anxiety disorder, unspecified; F90.9 Attention-deficit hyperactivity disorder, unspecified type; E83.51 Hypocalcemia; Z98.84 Bariatric surgery status; D64.9 Anemia, unspecified; Z79.899 Other long term (current) drug therapy; E87.6 Hypokalemia
CPT/HCPCS: 36415; 36416; 74181; 76376; 80053; 80074; 80202; 80306; 81001; 81025; 82140; 82247; 82248; 82390; 82550; 82570; 82728; 83010; 83090; 83516; 83540; 83550; 83605; 83615; 83630; 83690; 83735; 83921; 84100; 84300; 84478; 85025; 85046; 85049; 85300; 85362; 85384; 85610; 85730; 86015; 86038; 86225; 86664; 86665; 86720; 86790; 87086; 87328; 87329; 87497; 87507; 87529; 88184; J0132; J0613; J0696; J2272; J2405; J2543; J7030; J7070; J7120